=== PATIENT | male | born 1995 | race Hispanic/Latino ===

== ENCOUNTER 2018-09-15 20:18 | Emergency (ER) | payer SELFPAY ==
--- NOTE | 2018-09-15 21:37 | RAD ---
CHEST PA AND LATERAL: 09/15/18 HISTORY: 23-year-old male with history of cough. COMPARISON: 10/10/07. Heart size is within normal limits. The lungs are clear. No pneumonia, edema, or pleural effusion or other acute process. IMPRESSION: No acute intrathoracic disease. No evidence for pneumonia. POS: [facility]
== END 2018-09-15 23:06 | disposition home or self-care (01) ==
LOC: ERS 20:18
DX: J20.9 Acute bronchitis, unspecified (principal); F17.210 Nicotine dependence, cigarettes, uncomplicated
CPT/HCPCS: 71046; J7620